=== PATIENT | male | born 1990 | race African-American/Black ===

== ENCOUNTER 2019-07-15 00:54 | Emergency (ER) | payer MEDICAID ==
[~2019-07-15] VITALS: Ht 170.2 cm; Wt 65.0 kg
[2019-07-15] MEDS ORDERED: SODIUM CHLORIDE 0.9% 1,000 ML IV ONE (03:51)
[2019-07-15 04:30] LABS: BASOPHILS % 2.2 % (0.0-2.0); CHLORIDE 106 mEq/L (98-107); EOSINOPHILS % 3.6 % (0.0-5.0); HEMATOCRIT. 34.5 % (42.0-52.0); HEMOGLOBIN. 12.1 g/dL (14.0-18.0); MEAN CORPUSCULAR HEMOGLOBIN 32.9 pg (28.0-32.0); MEAN CORPUSCULAR VOLUME 93.9 fL (80.0-94.0); MEAN PLATELET VOLUME 8.8 fl (7.4-10.4); NEUTROPHILS % 47.2 % (40.0-76.0); PLATELET 349 x1000/uL (130-400); RED BLOOD CELL COUNT 3.67 mill/uL (4.7-6.1)
[2019-07-15 06:29] VITALS: BP 120/67
== END 2019-07-15 06:30 | disposition home or self-care (01) ==
LOC: ER 01:13
DX: B34.9 Viral infection, unspecified (principal); R03.0 Elevated blood-pressure reading, without diagnosis of hypertension
CPT/HCPCS: 36415; 71045; 80053; 85025; 93005; 99285; J7030

== ENCOUNTER 2019-10-13 13:38 | Emergency (ER) | payer MEDICAID ==
[~2019-10-13] VITALS: Ht 170.2 cm; Wt 70.5 kg
[2019-10-13 13:47] VITALS: BP 147/71
[2019-10-13] MEDS ORDERED: TETRACAINE 0.5% OPHTH DROPS 4ML LEFTEYE ONE (14:30)
[2019-10-13] MEDS ORDERED: FLUORESCEIN SODIUM 1MG/STRIP LEFTEYE ONE (14:30)
[2019-10-13] MEDS ORDERED: ACETAMINOPHEN 325MG TABLET PO ONE (14:45)
== END 2019-10-13 16:38 | disposition left against medical advice (07) ==
LOC: ER 13:38
DX: S00.212A Abrasion of left eyelid and periocular area, initial encounter (principal); S06.9X9A Unspecified intracranial injury with loss of consciousness of unspecified duration, initial encounter; Y04.0XXA Assault by unarmed brawl or fight, initial encounter; Y93.89 Activity, other specified; Y92.89 Other specified places as the place of occurrence of the external cause; Y99.8 Other external cause status
CPT/HCPCS: 99283

== ENCOUNTER 2019-12-20 19:57 | Emergency (ER) | payer MEDICAID ==
[~2019-12-20] VITALS: Ht 170.2 cm; Wt 65.0 kg
[2019-12-20] MEDS ORDERED: LORAZEPAM 0.5MG TABLET PO ONE (21:15)
[2019-12-20 22:00] VITALS: BP 131/74
== END 2019-12-20 22:00 | disposition home or self-care (01) ==
LOC: ER 19:57
DX: Z03.818 Encounter for observation for suspected exposure to other biological agents ruled out (principal); F41.0 Panic disorder [episodic paroxysmal anxiety]; Z96.659 Presence of unspecified artificial knee joint; R06.02 Shortness of breath
CPT/HCPCS: 71045; 93005; 99284; C9803; U0003; 87635; 99283